=== PATIENT | male | born 1970 | race Caucasian/White ===

== ENCOUNTER → 2017-05-13 | Outpatient (CLI) | payer BC ==
[~2017-05-13] MED LIST: ANUSOL-HC30 GM R; COUMADIN6 MG; DILANTIN100 MG PO; INDOCIN25 MG PO; KEPPRA500 M1 PO; LOPRESSOR25 MG PO; NORCO 5-325 TA1 EACH PO; PROTONIX40 MG PO; TYLENOL325 MG PO
[2017-05-13 09:58] LABS: CREATININE 0.9 mg/dL (0.6-1.3)
[2017-05-13 10:05] LABS: ESTIMATED GFR (MDRD EQUATION) > 60
== END | disposition disaster alternative care site (69) ==
LOC: GRAD 08:48
PROVIDERS: Neurological Surgery
DX: D21.6 Benign neoplasm of connective and other soft tissue of trunk, unspecified (principal); M85.88 Other specified disorders of bone density and structure, other site
CPT/HCPCS: A9577

== ENCOUNTER 2017-06-21 06:45 | Inpatient (IN) | payer BC ==
[~2017-06-21] VITALS: Ht 175.3 cm; Wt 84.9 kg
--- NOTE | ~2017-06-21 | HP ---
PATIENT'S NAME: IOANA POPE [facility] AGE: 47 Y [address] ROOM: [place] [address] LOCATION: GICU ADMIT DATE: 06/21/2017 History & Physical DISCHARGE DATE: FAMILY PHYSICIAN: Sherry Zhong PA-C ATTENDING PHYSICIAN: TIMBO BURCIAGA DATE OF SERVICE: CHIEF COMPLAINT: Syncope. 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 On my encounter, he said that he did not feel good. He went outside, drank some water, came back, and he was working with some boxes and next thing he knew that he was on the floor. He does not remember that he hit his head. He did hit his chest on the floor. He confidently says that he knew that he did not have any seizures at that point. On further inquiry, he denied any headache, any trouble with the eyes, any trouble swallowing. He does complain of chest pain from the fall. No abdominal pain. No burning on urination, constipation, diarrhea, extremity swelling. On my encounter, while I was interviewing this patient, he had a tonic clonic seizure, which lasted about over a minute. ALLERGIES: CODEINE. PAST MEDICAL HISTORY: 1. Epilepsy since , currently on Keppra. 2. 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 3. History of sinus arrest dual chamber pacemaker. 4. History of pericarditis. MEDICATIONS: Being reconciled right now. FAMILY HISTORY: Negative for any seizure disorder or any history of blood clots. SOCIAL HISTORY: Lives at home. He works at [employer]. No alcohol or drug abuse. PATIENT'S NAME: IOANA POPE [facility] AGE: 47 Y [address] ROOM: [place] [address] LOCATION: GICU ADMIT DATE: 06/21/2017 History & Physical DISCHARGE DATE: FAMILY PHYSICIAN: Sherry Zhong PA-C ATTENDING PHYSICIAN: TIMBO BURCIAGA A REVIEW OF SYSTEMS: All the systems reviewed and were negative except what is mentioned in the HPI. PAST SURGICAL HISTORY: Permanent pacemaker placed on the previous hospitalization. PHYSICAL EXAMINATION: VITAL SIGNS: Blood pressure 142/80, heart rate 72, respiratory rate 16, saturating 95% on room air. GENERAL: Initially alert and oriented. No acute distress. There appears to be some tremors on the right head initially before he had a full tonic-clonic seizure. CARDIOVASCULAR: Tachycardic. S1 and S2. No murmurs, gallops, or rubs. LUNGS: Clear to auscultation bilaterally. ABDOMEN: Soft, nontender, nondistended. Bowel sounds present. EXTREMITIES: No clubbing, cyanosis, or edema. PSYCH: Normal affect, mood, and speech. HEAD: Atraumatic and normocephalic. SKIN: No blemishes or bruises noted. MUSCULOSKELETAL: No muscle tenderness or joint swelling noted. ENDOCRINE: No thyromegaly or myxedema noted. LYMPHATICS: No lymphangitis or lymphadenopathy noted. DIAGNOSTIC DATA: CAT scan was done and per my report was negative for any acute intracranial changes. Initial lab work was only remarkable for high hemoglobin which was about 18.3. Rest of the lab work was unremarkable. ASSESSMENT/PLAN: 1. Syncope. 2. Witnessed seizure in the emergency department. 3. History of sinus arrest, status post pacemaker. 4. History of epilepsy. 5. History of sagittal sinus thrombosis on long-term anticoagulation. 6. 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 PLAN: We are going to give him Keppra 1 g IV b.i.d. EEG and Neurology consultation will be obtained. Keppra level has been sent. He will be placed under seizure and fall precautions. Device check was done here in the emergency department. Did not notice any arrhythmia. We are going to hydrate him with Ringer's lactate 1 L bolus now and then at 150 mL/h. We will follow Neurology recommendations. He is already on therapeutic anticoagulation, only SCDs. PATIENT'S NAME: IOANA POPE [facility] AGE: 47 Y [address] ROOM: [place] [address] LOCATION: [facility] ADMIT DATE: 06/21/2017 History & Physical DISCHARGE DATE: FAMILY PHYSICIAN: Sherry Zhong PA-C ATTENDING PHYSICIAN: TIMBO BURCIAGA p.r.n., if any further seizures. TIMBO BURCIAGA MD VIC/modl /[id number] D: [id number] T: [id number] HISTORY & PHYSICAL
--- NOTE | ~2017-06-21 | DS ---
PATIENT'S NAME: IOANA POPE [facility] AGE: 47 Y [address] [id number] [address] [facility] ADMIT DATE: 06/21/2017 Discharge Summary DISCHARGE DATE: FAMILY PHYSICIAN: Sherry Zhong PA-C ATTENDING PHYSICIAN: Yair Jesus PRINCIPAL DIAGNOSES: 1. Seizure. 2. Epilepsy. 3. History of dural sinus thrombosis. HOSPITAL COURSE: A 47-year-old gentleman who works at the [employer], had a history of seizures secondary to epilepsy as well as had history of dural sinus thrombosis, on Coumadin. He was admitted to the emergency department with syncope. On my encounter, he had a witnessed seizure by myself. He was given Ativan and IV Keppra. His Keppra dose was increased to 1500 mg b.i.d. and he was also started on Dilantin by the Neurology. His Coumadin was stopped because of clearing up of the CT venography done by Neurology. DISCHARGE MEDICATIONS: 1. Keppra 1500 mg p.o. 2 times daily. 2. Dilantin 100 mg p.o. 3 times daily. 3. Metoprolol tartrate 25 mg p.o. twice daily. ACTIVITY: As tolerated. No driving for 3 months. DIET: Advance diet as tolerated. MD VIC BOYKIN/harmony /[id number] d: 06/22/171711 t: 06/23/17 1657, DISCHARGE SUMMARY
--- NOTE | ~2017-06-21 | CON ---
PATIENT'S NAME: PATRIC SAMPSON [facility] AGE: 47 Y [address] [place]: [id number] [address] LOCATION: GICU ADMIT DATE: 06/21/2017 Consultation DISCHARGE DATE: 06/22/2017 FAMILY PHYSICIAN: Sherry Zhong PA-C ATTENDING PHYSICIAN: Yair Jesus DATE OF CONSULTATION: 06/21/2017 TIME: 4:00 p.m. HISTORY OF PRESENT ILLNESS: Mr. 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 He has a known seizure history, but has been seizure-free since around November when he had a recent admission to the hospital. The patient apparently had a generalized tonic-clonic seizure with loss of consciousness. The patient continued to have a bit of a seizure activity on his way to the hospital, but he stopped seizing upon his arrival here at our hospital. The patient was loaded with Keppra 1 g for which the patient was taking this on a daily basis. Furthermore, we started the patient on Dilantin last evening giving him 1 g of Dilantin with the plan to add this medication to his medication regimen. The patient did very well during the course of the day on the . He was postictal early in the morning and was hard to arouse and was sleeping throughout the day. He usually does sleep during the day because of his shift supervisor rn in general. At no time during the day did he have any seizure activity. By the afternoon into the early evening when I saw the patient, he started to wake up and he was responding to all commands and he was conversational, he was able to start taking oral medications. I described to him that we were going up on the dose of his Keppra from his current dose of 1000 mg twice a day to 1500 mg twice a day because he did have a breakthrough seizure. In addition, we felt comfortable to start the patient on Dilantin. The reason for this is that the patient was on Dilantin for upwards of 20 years. He had been taken off the medication around November time. The thought was possibly in the setting of him coming in with a head injury and was found to have venous sinus thrombosis that perhaps the Dilantin was associated with increased thrombus risk. It was thus the decision of the Neurology hospitalist at that time to change the medication to the new medication of Keppra which he had been on. Basically, the patient was tolerating the Keppra fine and did not have any breakthrough seizures until this one seizure. The patient stated that perhaps he was under a lot more anxiety and stress from his work and perhaps had less sleep than normal as a possible responsibility for his generalized seizure, but nonetheless this was still odd for him to have a breakthrough seizure as he had been seizure free again for many years. PATIENT'S NAME: PATRIC SAMPSON [facility] AGE: 47 Y [address] [id number] [address] LOCATION: [facility] ADMIT DATE: 06/21/2017 Consultation DISCHARGE DATE: 06/22/2017 FAMILY PHYSICIAN: Sherry Zhong PA-C ATTENDING PHYSICIAN: Yair Jesus PRIOR MEDICAL HISTORY: The patient did have a syncopal episode back on presentation in early October 2016, when he was found to have a systolic rhythm and junctional rhythm. The patient was noted to have a small left intracranial hemorrhage after a fall. This loss of consciousness was associated likely with cardiac issue and the patient required a permanent pacemaker at that time. During his workup in October and November in addition to the finding of a small left anterior medial frontal hemorrhage of around 2 cm with some adjacent edema back in October 2016, due to the head trauma we also found a pre-sagittal sinus thrombosis as well as a right and left transverse sinus venous thrombosis best visualized on a CT angiogram. The patient was placed on anticoagulation for these venous sinus thromboses. Hypercoagulable workup at that time which was nonsignificant and now has had repeat CAT scans as well as a CAT scan venogram which now reveals resolvement of these venous dural sinuses. Thus. The patient is to be taken off anticoagulation he had been on for approximately 6 months. From prior medical history, seizures since childhood. He had been on Dilantin for 20 years and remained seizure free. FAMILY HISTORY: No history of cancers. No thrombotic history in family members. SOCIAL HISTORY: He lives alone. He is independent. He has never been . He has no history of smoking or alcohol use. He works in [employer]. Complete education is unknown and he has some Asperger's like behavior. HOME MEDICATIONS: Keppra 1000 mg twice a day. ALLERGIES: HE HAS AN ALLERGY LISTED TO CODEINE. CURRENT MEDICATIONS STARTED IN THE HOSPITAL: 1. Phenytoin 100 mg 3 times a day. 2. Keppra 1000 mg twice day increased to 1500 mg twice a day. 3. Metoprolol 25 mg p.o. b.i.d. REVIEW OF SYSTEMS: Patric Sampson is a very pleasant 47-year-old male patient who had a breakthrough generalized tonic-clonic seizure with clearly postictal lethargy. This is a one-time seizure that was not repeated here in the hospital. The patient, however, in the emergency room was given an extra bolus of Keppra and the dose of the Keppra has been increased to 1500 mg twice a day due to the fact that the patient did have a breakthrough seizure. Discussion with the patient concerning his history of Dilantin use and how stable was in the past and how PATIENT'S NAME: PATRIC SAMPSON [facility] AGE: 47 Y [address] ROOM: [address] [address] LOCATION: [facility] ADMIT DATE: 06/21/2017 Consultation DISCHARGE DATE: 06/22/2017 FAMILY PHYSICIAN: Sherry Zhong PA-C ATTENDING PHYSICIAN: Yair Jesus possibly the Keppra may be making him a bit more sedated during the day prompted us to add Dilantin. The patient denies any headaches, shortness of breath, or visual changes. No problems with chewing or swallowing. Rest of the systems are reviewed, all within normal limits. PHYSICAL EXAMINATION: GENERAL: This is a healthy-appearing male patient in no acute distress. He is conversational. He has a fairly basic insight into the nature of his seizures and a fair judgment. He has no problems with his language and he has no issues with behavior outbursts recently. VITAL SIGNS: Revealed a pulse of 75 and regular, respirations 16, blood pressure 144/98, temperature is 97.6. NEURO: Cranial nerves 2 through 12 is intact. Normal power in the upper and lower extremities. Normal bulk and tone of the extremities. Normal coordination on [id number] and vgsh-gm-[id number]. The patient's gait is normal and narrow base. Negative Romberg. Reflexes are normal, +2 in the upper and lower extremities. Sensory exam is grossly intact. IMPRESSION: Mr. Sampson is doing well. He has no focal neurologic deficits. He had a breakthrough seizure which prompted us to raise his Keppra dosing to 1500 mg twice a day. The issue of whether the patient should be back on his Dilantin having changes in medication due to the thought that it may have prompted a thrombosis to the venous sinuses of the brain has really been speculative. On discussions with Dr. Chaparro he had no problem in placing the patient back on Dilantin which would be somewhat helpful for us to see if the patient is compliant with his antiseizure medication plus the fact that he had been stable on this medication for nearly 2 decades. So, Dilantin was started 100 mg 3 times a day with a goal to get the level to 10-15. The patient will follow up in our Neurology office next week to get a Dilantin level. Will also be discharged on Keppra 1500 mg twice a day. We have discontinued the warfarin as the patient has no evidence of the cortical venous sinus thrombosis. This has been also recommended by Dr. Chaparro. This has been thoroughly discussed with the patient and the patient's mother who has been present at the bedside throughout his admission. See the patient at neurologic followup next week. ULICES COLON MD JRM/modl /[id number] d: 06/22/17 2156 t: 07/23/17 1549, CONSULTATION REPORT
--- NOTE | ~2017-06-21 | ER ---
PATIENT'S NAME: IOANA POPE [facility] AGE: 47 Y [address] ROOM: [place] [address] LOCATION: [facility] ADMIT DATE: 06/21/2017 ER/Outpatient Report DISCHARGE DATE: FAMILY PHYSICIAN: Sherry Zhong PA-C ATTENDING PHYSICIAN: TIMBO JESUS Time of Arrival: 0645 hours. Time of Evaluation: 0648 hours. IDENTIFICATION: A 47-year-old male. CHIEF COMPLAINT: Syncopal episode. HISTORY OF PRESENT ILLNESS: The patient is a 47-year-old white male, who works at [employer]. He has a history of epilepsy. He also has a history of syncopal episode secondary to sinus arrest, status post pacemaker placed in October [address] Hong. He was feeling well at work, and the next thing he knew he was waking up with people around him. He said otherwise he has felt well the last few days other than he has had some stress. Currently, he is complaining of some mild left-sided chest pain from where he fell and left elbow pain. He has no headache, but he does have a history of sinus thrombosis, and he is on chronic anticoagulation, and that was managed by Dr. Chaparro in October 2016. He was not incontinent of urine. ALLERGIES: NO KNOWN DRUG ALLERGIES. CURRENT MEDICATIONS: 1. Keppra 1 g b.i.d. 2. Metoprolol 25 mg b.i.d. 3. Protonix 40 mg daily. MEDICAL PROBLEMS: Epilepsy, on Keppra; sagittal sinus thrombosis, on Coumadin; sinus arrest, syncopal episode secondary to sinus arrest, status post dual-chamber pacemaker; pericarditis. PRIOR SURGERIES: Dual-chamber pacemaker. FAMILY HISTORY: No pertinent family history identified. PATIENT'S NAME: IOANA POPE [facility] AGE: 47 Y [address] ROOM: [place] [address] LOCATION: [facility] ADMIT DATE: 06/21/2017 ER/Outpatient Report DISCHARGE DATE: FAMILY PHYSICIAN: Sherry Zhong PA-C ATTENDING PHYSICIAN: TIMBO JESUS REVIEW OF SYSTEMS: All systems reviewed and negative other than what is noted in the HPI. PHYSICAL EXAMINATION: VITAL SIGNS: Blood pressure 147/94, pulse 80, respirations 16, temperature 98.2, and saturations 99%. GENERAL: A 47-year-old male, in no acute distress. HEENT: Head: Normocephalic, atraumatic. Ears: TMs translucent both ears. Eyes: Pupils equal and reactive to light and accommodation. Extraocular movements intact. Nose: Mucosa pink. No lesions. Mouth: No lesions. Pharynx benign. NECK: Supple. No lymphadenopathy. LUNGS: Clear to auscultation. HEART: Regular rate and rhythm. ABDOMEN: Soft, nondistended, nontender. MUSCULOSKELETAL: The patient has tenderness over the left lower sternum. No palpable deformities and no crepitus. NEURO: The patient is alert and oriented x4. Cranial nerves 2 through 12 grossly intact. Motor strength 5/5 throughout. Sensation is intact to light touch. Small superficial laceration over his left elbow, measuring 2 to 3 mm. He also has some ecchymosis noted. Lower extremities, full range of motion. No deformities noted. No lower extremity edema. LABORATORY DATA AND X-RAYS: X-ray of his left elbow, no fracture or dislocation. Pending Radiology over- read. Chest x-ray, no acute process. Pending Radiology over-read. Head CT, negative per radiologist. Hemoglobin 18.3, hematocrit 53.1, platelets 187, white count 7.8 with normal differential. INR 2.28. Sodium 138, potassium 3.8, chloride 103, CO2 of 26, BUN 18, creatinine 1.0, blood sugar 86. Liver enzymes normal. CPK 158, CK-MB 2.9, troponin I less than 0.040. Initial EKG, sinus rhythm at 75 beats per minute. RSR prime, no acute ST elevation and no significant abnormalities. Repeat EKG at 9:56, sinus tachycardia, otherwise unchanged. IMPRESSION: 1. Syncopal episode. The patient had a sinus arrest with syncope, status post pacemaker. Sentri to evaluate and interrogate his pacemaker. Dr. Jesus will provide admission. 2. Seizure disorder. The patient is on Keppra. While Dr. Jesus was here, evaluated the patient. He had 2 episodes of generalized tonic-clonic seizure activity. The first one lasting 2 minutes, second one lasting less than 45 seconds. Supportive management was given in the emergency room. He was given IV dose of Keppra 1000 mg and Ativan 1 mg IV. 3. Left elbow contusion and superficial laceration. Wound care discussed. PATIENT'S NAME: IOANA POPE [facility] AGE: 47 Y [address] ROOM: [address] [address] LOCATION: [facility] ADMIT DATE: 06/21/2017 ER/Outpatient Report DISCHARGE DATE: FAMILY PHYSICIAN: Sherry Zhong PA-C ATTENDING PHYSICIAN: TIMBO JESUS 4. The patient has venous sagittal sinus thrombosis, on chronic anticoagulation. Head CT today is normal. The patient remained hemodynamically stable and was taken to the floor in stable condition. TRESA ROSAS MD CAR/modl /[id number] d: 06/21/17 2153 t: 06/22/17 1244, OUTPATIENT REPORT
[2017-06-21 07:34] LABS: INR - (THERAPEUTIC) 2.28 (0.92-1.07); PROTIME 24.1 SECONDS (9.8-11.4); PTT 34 SECONDS (25-32)
[2017-06-21 07:35] LABS: BASOPHIL % 0.4 %; EOSINOPHIL # 0.1 K/uL (0.0-0.5); EOSINOPHIL % 1.4 %; HEMATOCRIT 53.1 % (37.0-53.0); HEMOGLOBIN 18.3 g/dL (12.0-17.0); IMMATURE GRANULOCYTE # 0.1 K/uL (0.0-0.3); IMMATURE GRANULOCYTE % 1.1 %; LYMPHOCYTE # 1.4 K/uL (0.8-4.0); LYMPHOCYTE % 17.7 %; MCH 29.5 pg (27.0-34.0); MCHC 34.5 gm/dL (32.0-36.5); MCV 85.6 fl (83.0-98.0); MONOCYTE # 0.6 K/uL (0.0-1.0); MONOCYTE % 7.5 %; MPV 10.3 fl (9.4-12.4); NEUTROPHIL # (ANC) 5.6 K/uL (1.4-9.0); NEUTROPHIL % 71.9 %; NRBC % 0 /100WBC (0-0.00); PLATELET COUNT 187 K/uL (150-450); RDW-CV 13.3 % (11.9-14.6); WBC 7.8 K/uL (4.0-11.0)
[2017-06-21 07:46] LABS: ALBUMIN 3.8 gm/dL (3.5-5.0); ALK PHOS 142 IU/L (33-138); ALT 68 IU/L (12-78); ANION GAP 12.8 (10.0-19.0); AST 34 IU/L (10-40); BLOOD UREA NITROGEN 18 mg/dL (6-24); CALCIUM 9.2 mg/dL (8.5-10.5); CHLORIDE 103 mMol/L (96-110); CO2 26 mMol/L (22-32); CPK 158 IU/L (35-332); MAGNESIUM 2.4 mg/dL (1.8-2.6); POTASSIUM 3.8 mMol/L (3.7-5.1); SODIUM 138 mMol/L (135-145); TOTAL BILIRUBIN 0.6 mg/dL (0.0-1.5)
--- NOTE | 2017-06-21 11:20 | NUR ---
Patient is 47 yo male admitted from the ER with seizure activity. patient stated he was a little tired. was answering questions fairly easily, however, during the interview, he started to have a seizure at 1104. nurse was notified. interview stopped at this time. IV is infusing in right antecubital space without erythema or edema noted at site. Education is not given at this time due to patient's seizure. mother is not present either. Report is given to ALFREDO Anderson.
--- NOTE | 2017-06-21 16:50 | NUR ---
Significant Event: Patient oriented x3. Post-ictal. Follows commands when awake. Pupils 4mm, brisk. Patient had seizure at 1103 lasting 1 minute and 40 seconds, tonic-clonic in nature with head deviated to the left. Does turn blue during seizure. Had seizures x2 in ER. Did bite end of tongue during last seizure. Small laceration to L) elbow, gauze and tape covering it. Keppra and dilantin IV given for seizures, ativan also given per MD order. VSS, on room air. IV to R) AC infusing LR at 150 mL/hr for current liter and then saline lock. IV to L) wrist, saline locked. Mother at bedside. Follow up: [facility] status.
--- NOTE | 2017-06-22 05:22 | NUR ---
Significant Event:Patient is A/O, denies pain or discomfort. Drowsy t/o shift, easily aroused. Follows commands et strength equeal bilaterally. Tachy at times, has implanted pacer. No BM this shift, utilizes bedside urinal. Tongue bruised, L) elbow laceration. R) AC PIC running NS at 75cc/hr. L) wrist PIV patent, no blood return. Follow up: CT head with and without contrast this AM
[2017-06-22 05:34] LABS: BASOPHIL % 0.1 %; EOSINOPHIL % 0.2 %; HEMATOCRIT 49.5 % (37.0-53.0); HEMOGLOBIN 16.9 g/dL (12.0-17.0); IMMATURE GRANULOCYTE % 0.3 %; LYMPHOCYTE # 0.9 K/uL (0.8-4.0); MCHC 34.1 gm/dL (32.0-36.5); MCV 84.9 fl (83.0-98.0); MONOCYTE # 0.7 K/uL (0.0-1.0); MONOCYTE % 7.7 %; MPV 9.7 fl (9.4-12.4); NEUTROPHIL # (ANC) 7.8 K/uL (1.4-9.0); NEUTROPHIL % 82.7 %; NRBC % 0 /100WBC (0-0.00); PLATELET COUNT 173 K/uL (150-450); RBC 5.83 M/uL (4.00-6.00); RDW-CV 13.1 % (11.9-14.6); WBC 9.5 K/uL (4.0-11.0)
[2017-06-22 05:47] LABS: INR - (THERAPEUTIC) 2.14 (0.92-1.07); PROTIME 22.6 SECONDS (9.8-11.4)
[2017-06-22 05:53] LABS: ANION GAP 12.6 (10.0-19.0); BLOOD UREA NITROGEN 8 mg/dL (6-24); CALCIUM 8.5 mg/dL (8.5-10.5); CHLORIDE 107 mMol/L (96-110); CO2 23 mMol/L (22-32); CREATININE 0.7 mg/dL (0.6-1.3); POTASSIUM 3.6 mMol/L (3.7-5.1); SODIUM 139 mMol/L (135-145)
--- NOTE | 2017-06-22 13:57 | NUR ---
Significant Event:A/O X 3. Ambulates in the pace steady gait, no dizziness, with PT. CT of brain with contrast this AM. Grasps are equal and strong. Follows all commands, no report of numbness or tingling. Reports pain in L) wrist IV, so it is DCd. All IV meds changed to PO. O2 sats > 90% on RA. Tolerating PO fluids and regular diet. SL'd. Complete bath. Voids without problems. NO BM today, passing flatus. PT/OT started. Dr Orozco updated over the phone. Follow up:Patient wants to go home and wants to know when he can return to work.
[2017-06-22] MEDS ORDERED: DILANTIN100 MG PO (16:27)
== END 2017-06-22 17:00 | disposition disaster alternative care site (69) | DRG 101 ==
LOC: GACC 06:45 → GICU 10:14
PROVIDERS: Family Medicine; ADMIT Internal Medicine
DX: G40.901 Epilepsy, unspecified, not intractable, with status epilepticus (principal); Z86.718 Personal history of other venous thrombosis and embolism; Z79.01 Long term (current) use of anticoagulants; Z95.0 Presence of cardiac pacemaker
CPT/HCPCS: J1165; J1953; J2001; J2060; J7030; J7040; J7120; Q9967

== ENCOUNTER → 2017-06-21 | Outpatient (CLI) | payer BC | END | disposition disaster alternative care site (69) | LOC: GAMB 06:22 | DX: R55 Syncope and collapse (principal); S51.011A Laceration without foreign body of right elbow, initial encounter; I61.9 Nontraumatic intracerebral hemorrhage, unspecified; Z95.0 Presence of cardiac pacemaker; W19.XXXA Unspecified fall, initial encounter | CPT/HCPCS: A0425; A0427 ==